=== PATIENT | male | born 1965 | race Caucasian/White ===

== ENCOUNTER 2017-10-21 11:47 | Emergency (ER) | payer MEDICAID, SELFPAY ==
[2017-10-21 11:48] VITALS: BP 142/75; PULSE 78; RESP 16; TEMP 36.8; O2SAT 100; BMI 26.4
--- NOTE | 2017-10-21 12:11 | US_ITS ---
STUDY: SCROTUM ULTRASOUND REASON FOR EXAM: Male, 52 years old. Pain. TECHNIQUE: Ultrasound evaluation of the scrotum was performed with color Doppler and static jackson-scale imaging. COMPARISON: None. FINDINGS: RIGHT TESTICLE INTRATESTICULAR: There is a normal size of the right testicle. The right testicle measures 4.1 x 2.4 x 2.0 cm. There is a homogenous echotexture. There is normal arterial and normal venous vascularity. There is no demonstrated right testicular mass or cyst. EXTRATESTICULAR: The epididymis is normal in size. The epididymis head measures 1.5 cm. There is normal vascularity of the epididymis. There is no demonstrated epididymal cystic structure. There is no demonstrated hydrocele. There is no demonstrated varicocele. There is no demonstrated extratesticular mass or cyst. LEFT TESTICLE INTRATESTICULAR: There is a normal size of the left testicle. The left testicle measures 3.9 x 2.8 x 2.2 cm. There is a homogenous echotexture. There is normal arterial and normal venous vascularity. There is no demonstrated left testicular mass or cyst. EXTRATESTICULAR: The epididymis is normal in size. The epididymis head measures 1.8 cm. There is normal vascularity of the epididymis. There is a well-defined cystic structure within the epididymis, without internal echoes, consistent with a 4 mm epididymal cyst. There is no demonstrated hydrocele. There are prominent extratesticular veins consistent with a varicocele. There is no demonstrated extratesticular mass or cyst. US/Testicular with Arterial Flow IMPRESSION: Normal bilateral testicles. Small left varicocele. Electronically Signed: Jacob Armstrong MD at 13:26 EDT , Service support ,
[2017-10-21] MEDS: Ondansetron 4 MG/2 ML Vial IV (12:26)
[2017-10-21] MEDS: Ketorolac 30 MG/ML Syringe IV (12:27)
[2017-10-21] MEDS: Morphine 4 MG/ML Syringe IV (12:27)
[2017-10-21 12:52] LABS: Bacteria 0 SEEN /hpf (None Seen); Mucous, Urine 0 SEEN /hpf (<or=2+); White Blood Cells 0 SEEN /hpf (0-5)
[2017-10-21 13:08] LABS: Color, Urine Yellow (Yellow); Glucose, Dipstick Normal (Normal); Ketone-Dipstick 5 mg/dl (Negative); Leukocyte Esterase-Dipstick Negative /ul (Negative); Nitrite-Dipstick Negative (Negative); Occult Blood-Urine 50 /ul (Negative); Protein-Dipstick Negative (Negative); Specific Gravity, Urine 1.015 (1.002-1.030); Urine Bilirubin Dipstick Negative (Negative); Urine Clarity Clear (Clear); Urine Urobilinogen Normal (Normal)
[2017-10-21 13:15] LABS: Red Blood Cells-Urine 0-5 SEEN /hpf (0-5); Squamous Epithelial Cells - UA 0-5 SEEN /hpf (0-5)
--- NOTE | 2017-10-21 13:33 | CT_ITS ---
STUDY: CT ABDOMEN AND PELVIS WITH CONTRAST REASON FOR EXAM: Male, 52 years old. Left testicular pain. Kidney stone status post lithotripsy. RADIATION DOSAGE (If Supplied By Facility): CTDIvol = ( 17.68 ) mGy, DLP = ( 1210.83 ) mGycm TECHNIQUE: Transaxial images were obtained from the dome of the diaphragm to the symphysis pubis without oral contrast. 100 ml of Isovue 300 contrast was administered. Sagittal and coronal images were reconstructed. Individualized dose optimization techniques were used for this CT. COMPARISON: 04/08/2015. FINDINGS: The visualized lung bases are unremarkable. The visualized portions of the heart are within normal limits. Normal liver. Normal gallbladder and extrahepatic biliary system. Normal spleen. Normal pancreas. Normal bilateral adrenal glands. No acute abnormalities of the kidneys. There is a 9 mm nonobstructing stone in the mid polar region of the right kidney, larger than on prior exam. No hydronephrosis on either side. No evidence for renal mass. Evaluation of the GI tract is limited by absence of oral contrast. Cannot exclude stomach wall thickening. No dilated loops of bowel or evidence for obstruction. Cannot exclude segmental thickening of the ca of the small or large bowel. Cannot exclude enteritis or colitis. Moderate diffuse fecal retention. Diverticulosis without definite diverticulitis. Appendix within normal limits. There is diffuse atherosclerotic calcification of the abdominal aorta, without a demonstrated aneurysm. Normal inferior vena cava. Normal retroperitoneum. Normal urinary bladder. There is enlargement of the prostate gland. Normal abdominal wall. There are diffuse degenerative changes of the visualized lumbar spine. Bilateral pars defects of L5 with mild anterolisthesis. Stable compression fracture of L1. CT/Abdomen/Pelvis W IV Cont ONLY IMPRESSION: No acute abnormality. Nonobstructing mid left renal stone. Electronically Signed: Jacob Armstrong MD at 15:40 EDT , Service support ,
[2017-10-21 14:15] LABS: Anion Gap 5 (5-15); BUN 17 mg/dL (7-18); BUN/Creat Ratio 18.3 RATIO (10-20); Calcium,Total 8.9 mg/dL (8.5-10.1); Chloride 106 mmol/L (98-107); Creatinine, Serum 0.93 mg/dL (0.70-1.30); EST Glomerular Filtration Rate 90 mL/min (>60); Est Glom Filt Rate - Afr Amer 109 mL/min (>60); Estimated Creatinine Clearance 103.81 ml/min; Glucose 80 mg/dL (74-106); Sodium Level 141 mmol/L (136-145)
[2017-10-21 14:16] LABS: Absolute Lymphocyte Count 2.49 X10^3/ul (0.83-4.51); Absolute Neutrophil Count 4.2 X10^3/uL (2.0-7.7); Basophil# 0.01 X10^3/uL; Basophil% 0.1 % (0-1); Eosinophil# 0.11 X10^3/uL; Eosinophils% 1.5 % (0-5); Hematocrit 42.5 % (40-54); Lymphocyte # 2.49 X10^3/ul (4.0); Lymphocyte % 33.6 % (19-41); Mean Corp Hgb Conc 32.9 g/gl (32-36); Mean Corpuscular Hgb 28.7 pg (27.0-32.0); Mean Corpuscular Volume 87.1 fL (80-94); Mean Platelet Vol. 11.9 fl (6.2-12.0); Monocyte# 0.61 X10^3/uL; Monocyte% 8.2 % (0-10); Neutrophil % 56.6 % (47-70); POSITIVE COUNT NO; POSITIVE DIFFERENTIAL NO; POSITIVE MORPHOLOGY NO; Platelet Count 223 K/mm3 (150-450); RBC Distribution Width SD 41.5 fl (35.1-43.9); Red Blood Count 4.88 M/mm3 (4.6-6.2); White Blood Count 7.4 K/mm3 (4.4-11.0)
[2017-10-21 15:28] VITALS: BP 107/64; PULSE 62; RESP 18; O2SAT 98
--- NOTE | 2017-10-21 16:05 | ED.DCSUM_ITS ---
- ER Visit Summary Date of Service: 10/21/17 Chief Complaint: Testicular pain History of Present Illness: The patient is a 52 M who states that he has been having a progressively worsening intermittent pain in the left testicle for a month. Last night today more painful and he went to his primary care physician who sent him to the emergency department at a concern for orchitis and possibly torsion. He is a diabetic also has a history of gout and hypercholesterolemia. He is in a monogamous relationship with his . He denies any dysuria. Does note some discomfort along the inguinal canal and wonders if he has a hernia. Physical Examination: Afebrile vital signs are stable Gen: Well-nourished well-developed Head: Normocephalic atraumatic Eyes: Perrl EOMI ENT: TMs clear no rhinorrhea moist mucous membranes Neck: Supple no lymphadenopathy no JVD nontender CVS: Regular rate rhythm no murmurs normal S1-S2 Respiratory: No distress clear to auscultation bilaterally chest nontender Abdomen: Soft nontender nondistended normal bowel sounds no masses : The left testicle is tender. Normal cremasteric reflex. The patient has no palpable hernia. No ureteral discharge. Back: Nontender Extremity: Nontender no edema Skin: Normal color no rash Neuro: alert orientated ?3 CN II-XII intact normal strength sensation reflexes gait cerebellar Psych: Normal affect normal mood Test Results: Urinalysis is negative. Scrotal ultrasound demonstrates a left hydrocele. CT of pelvis was negative. Emergency Department Course and Treatment: Patient received morphine and Toradol. Patient's pain is improved. CBC and chemistries were also normal. Start the patient on Cipro as well as scheduled anti-inflammatories and a few [place]. He will follow-up with urology Impression: 1. Left testicular pain This note was generated with [employer] dictation software. It may contain incorrect words, spelling, and punctuation that were not noted in review of the chart prior to signing ED Disposition - Plan for ED Patient: Disposition: Home or Assisted Living Chief Complaint: Male Pain/Injury Instructions: ED Orchitis Prescriptions: Hydrocodone/Acetaminophen [[place] 5-325 Tablet] 1 - 2 ea PO 4X/DAY PRN PRN 4 Days #20 tab PRN Reason: Pain Ciprofloxacin [Cipro] 500 mg PO BID #20 tab Ibuprofen [Motrin] 800 mg PO TID #20 tab Referrals: Glynn Andre MD [STAFF PHYSICIAN] - (call Monday to arrange follow up )
[2017-10-21 16:11] VITALS: BP 126/70; PULSE 54; RESP 18; O2SAT 96
== END 2017-10-21 16:12 | disposition home or self-care (01) ==
PROVIDERS: Emergency Provider Emergency Medicine; Family Provider Family Medicine; PCP Family Medicine
DX: N50.812 Left testicular pain (principal); E11.9 Type 2 diabetes mellitus without complications; M10.9 Gout, unspecified; E78.00 Pure hypercholesterolemia, unspecified; Z79.84 Long term (current) use of oral hypoglycemic drugs; Z79.899 Other long term (current) drug therapy
CPT/HCPCS: 74177; 76870; 80048; 81001; 85025; 93976; 96374; 96375; 99283; J7030; Q9967; A4216; J2405

== ENCOUNTER 2017-10-22 18:29 | Emergency (ER) | payer MEDICAID, SELFPAY ==
[2017-10-22] VITALS (7 sets, daily range): BP systolic 113–171; BP diastolic 70–86; PULSE 62–85; RESP 14–18; O2SAT 98–99; BMI 25.4
--- NOTE | 2017-10-22 19:12 | CT_ITS ---
STUDY: CT BRAIN WITHOUT CONTRAST REASON FOR EXAM: Male, 52 years old. Confusion RADIATION DOSAGE (If Supplied By Facility): CTDIvol = ( 44.99 ) mGy, DLP = ( 846.73 ) mGycm TECHNIQUE: Transaxial CT imaging of the brain was performed without administration of intravenous contrast material. Individualized dose optimization techniques were used for this CT. COMPARISON: None. FINDINGS: There is no acute bleed or infarct. There are normal white matter tracts. The ventricles are normal in configuration. There is no hydrocephalus. The visualized paranasal sinuses are clear. The mastoid air cells are well aerated. There is no skull fracture. CT/Brain/Head without Contrast IMPRESSION: No acute intracranial abnormality. Electronically Signed: Bijan Lindo, at 20:23 EDT Tel , Service support ,
[2017-10-22] MEDS: LORazepam 2 MG/ML Syringe 0.5 MG IV (19:22)
[2017-10-22 19:43] LABS: Absolute Lymphocyte Count 1.96 X10^3/ul (0.83-4.51); Absolute Neutrophil Count 10.4 X10^3/uL (2.0-7.7); Basophil# 0.02 X10^3/uL; Basophil% 0.2 % (0-1); Eosinophil# 0.04 X10^3/uL; Eosinophils% 0.3 % (0-5); Hematocrit 43.5 % (40-54); Hemoglobin 14.6 g/dl (13.0-16.5); Lymphocyte # 1.96 X10^3/ul (4.0); Lymphocyte % 15.1 % (19-41); Mean Corp Hgb Conc 33.6 g/gl (32-36); Mean Corpuscular Volume 86.3 fL (80-94); Mean Platelet Vol. 11.8 fl (6.2-12.0); Monocyte# 0.61 X10^3/uL; Monocyte% 4.7 % (0-10); Neutrophil # 10.38 X10^3/uL (2.7-7.7); Neutrophil % 79.6 % (47-70); Platelet Count 249 K/mm3 (150-450); RBC Distribution Width CV 12.9 % (11.6-14.6); RBC Distribution Width SD 41.1 fl (35.1-43.9); Red Blood Count 5.04 M/mm3 (4.6-6.2)
[2017-10-22 19:44] LABS: POSITIVE COUNT NO; POSITIVE DIFFERENTIAL NO; POSITIVE MORPHOLOGY NO
--- NOTE | 2017-10-22 20:01 | ED.RN ---
lab called with critical lab results. Glucose level 35. Dr. Matos made aware. Verbal order given for amp of d50 and give the patient food at this time
[2017-10-22 20:02] LABS: AST(SGOT) 24 U/L (15-37); Alanine Aminotransfer ALT/SGPT 32 U/L (16-61); Albumin, Serum 4.2 g/dL (3.2-5.0); Alkaline Phosphatase 66 U/L (45-117); Anion Gap 8 (5-15); BUN 24 mg/dL (7-18); BUN/Creat Ratio 21.1 RATIO (10-20); Calcium,Total 9.5 mg/dL (8.5-10.1); Chloride 104 mmol/L (98-107); Creatinine, Serum 1.14 mg/dL (0.70-1.30); EST Glomerular Filtration Rate 71 mL/min (>60); Est Glom Filt Rate - Afr Amer 86 mL/min (>60); Estimated Creatinine Clearance 87.13 ml/min; Globulin 4.1 g/dL (2.2-4.2); Glucose 32 mg/dL (74-106); Potassium 4.2 mmol/L (3.5-5.1); Protein, Total 8.3 g/dL (6.4-8.2); Sodium Level 143 mmol/L (136-145)
[2017-10-22] MEDS: Dextrose 50%-Water 25 GM/50 ML DISP.SYRIN IV ×2 (20:06→20:48)
--- NOTE | 2017-10-22 20:25 | NURSING ---
MADE AWARE: LACTIC 2.5
[2017-10-22 20:26] LABS: Lactic Acid 2.5 mmol/L (0.4-2.0)
[2017-10-22 20:46] LABS: Bedside Glucose 55 mg/dL (70-110)
[2017-10-22] MEDS: 0.9% Normal Saline 1,000 ML 1000 ML IV (20:48)
--- NOTE | 2017-10-22 21:06 | ED.VISSUMM ---
- ER Visit Summary Date of Service: 10/22/17 Chief Complaint: Altered mental status History of Present Illness: The patient is a 52 M who presents with altered mental status that began today. Patient took a dose of Cipro and broke out into a sweat. Family states patient became more confused and agitated after this. Patient was seen here yesterday for left testicular infection. Patient was started on Cipro. Patient had a dose last night and a dose this morning. Patient denies any dysuria or hematuria. Family denies any fevers but states the patient did break it into a sweat. Patient denies any nausea or vomiting. Patient does state that his left testicle pain has improved since yesterday. Physical Examination: Vital signs are stable. Patient is afebrile. Patient is in no acute distress. Patient is awake, alert, and agitated. Cranial nerves II through XII are intact. There are no focal motor or sensory deficits noted. Heart was regular rate and rhythm. Lungs are clear and equal bilaterally. Abdomen is soft and nontender. Oral mucosa is pink and moist. Neck is supple. There is no JVD noted. The remaining physical exam is within normal limits. Test Results: CBC showed a mild leukocytosis of 13.0. BUN was slightly elevated 24. Glucose was low at 32. Lactate was slightly elevated at 2.5. CT scan of the brain was obtained was within normal limits. Emergency Department Course and Treatment: Patient was given half amp of D50 and a food tray here. Repeat blood sugar was 55. Patient was given another half amp of D50. Patient was alert and cooperative on reevaluation. Patient states he no longer wants to take the Cipro because of the reaction he had. Patient was given a prescription for Bactrim to take instead of the Cipro. Patient was given a liter bolus of normal saline. Repeat lactate was obtained and was normal. Disposition: Discharged home Impression: Hypoglycemia This note was generated with General Specific dictation software. It may contain incorrect words, spelling, and punctuation that were not noted in review of the chart prior to signing ED Disposition - Plan for ED Patient: Disposition: Home or Assisted Living Chief Complaint: Alt LOC Diagnosis: Hypoglycemia Instructions: ED Diabetes Hypoglycemia Oral Agent Prescriptions: Smz/Tmp Ds [Bactrim Ds] 1 tab PO BID #20 tab Referrals: Hamilton Chowdhury MD [Primary Care Provider] -
[2017-10-22 21:42] LABS: Bacteria 0 SEEN /hpf (None Seen); Mucous, Urine 0 SEEN /hpf (<or=2+)
[2017-10-22 21:44] LABS: Color, Urine Yellow (Yellow); Glucose, Dipstick 250 mg/dl (Normal); Ketone-Dipstick 5 mg/dl (Negative); Leukocyte Esterase-Dipstick 25 /ul (Negative); Nitrite-Dipstick Negative (Negative); Occult Blood-Urine 50 /ul (Negative); Protein-Dipstick Negative (Negative); Specific Gravity, Urine 1.015 (1.002-1.030); Urine Bilirubin Dipstick Negative (Negative); Urine Clarity Clear (Clear); Urine Urobilinogen Normal (Normal)
[2017-10-22 21:45] LABS: Bedside Glucose 85 mg/dL (70-110)
[2017-10-22 22:11] LABS: Red Blood Cells-Urine 0-5 SEEN /hpf (0-5); Squamous Epithelial Cells - UA 0-5 SEEN /hpf (0-5); White Blood Cells 0-5 SEEN /hpf (0-5)
[2017-10-22 23:06] LABS: Lactic Acid 1.7 mmol/L (0.4-2.0)
[2017-10-22 23:31] LABS: Bedside Glucose 78 mg/dL (70-110)
[2017-10-22 23:32] LABS: Reflex Lactate? Y
== END 2017-10-22 23:45 | disposition home or self-care (01) ==
PROVIDERS: Emergency Provider Emergency Medicine; Family Provider Family Medicine; PCP Family Medicine
DX: E16.2 Hypoglycemia, unspecified (principal); N45.2 Orchitis; Z79.2 Long term (current) use of antibiotics; Z79.84 Long term (current) use of oral hypoglycemic drugs; Z79.891 Long term (current) use of opiate analgesic; Z79.899 Other long term (current) drug therapy
CPT/HCPCS: 70450; 80053; 81001; 82962; 83605; 85025; 87040; 87086; 96361; 96374; 96375; 96376; 99284; J7030; A4216

== ENCOUNTER 2018-04-30 02:16 | Inpatient (IN) | payer MEDICAID, SELFPAY ==
[2018-04-30] VITALS (15 sets, daily range): BP systolic 127–152; BP diastolic 70–84; PULSE 74–105; RESP 12–18; TEMP 36.6–37.7; O2SAT 91–98; BMI 32.8; BMI 27.7
--- NOTE | 2018-04-30 02:21 | ED.RN ---
RN CALLED FOR EKG, PULLED OLD EKGS FOR
--- NOTE | 2018-04-30 02:37 | EKG12_ITS ---
Test Reason : SYNCOPE Blood Pressure : / mmHG Vent. Rate : 105 BPM Atrial Rate : 105 BPM P-R Int : 144 ms QRS Dur : 092 ms QT Int : 366 ms P-R-T Axes : 000 048 035 degrees QTc Int : 483 ms Sinus tachycardia with Premature atrial complexes with Aberrant conduction Otherwise normal ECG Confirmed by DARIA SCHMIDT, AILYN ([id number]), writer editor ISABELLA LIU ([id number]) on 05/01/2018 9:36:49 AM Referred By: LORENA Confirmed By:AILYN HUFF MD
--- NOTE | 2018-04-30 02:37 | CT_ITS ---
HISTORY: PASSED OUT AND FELL HITTING HEADHX:HTN,DIABETES TECHNIQUE: Multiple axial images were obtained of the brain without intravenous contrast. A radiation dose optimization technique was used for this scan. IV Contrast dosage and agent: None. COMPARISON: 10/22/2017 FINDINGS: Normal ventricles. Mild cerebral cortical atrophy. Sifuentes-white matter differentiation appears normal. No intracranial mass, hemorrhage, or acute intracranial disease. Posterior fossa structures are on remarkable. No suspicious extra-axial fluid collection. Extensive opacification of the ethmoid air cells bilaterally. Sphenoid sinus mild mucosal thickening. The mastoids and middle ear cavities appear clear. No calvarial fracture seen. CT/Brain/Head without Contrast IMPRESSION: 1. No acute intracranial abnormality. 2. Bilateral ethmoid sinusitis and mild sphenoid sinusitis. Individualized dose optimization techniques were used for this CT. at 0402 Reported and signed by: Ben Coelho MD Electronically Signed: Ben Coelho, at 4:00 EST Tel , Service support ,
--- NOTE | 2018-04-30 02:38 | CT_ITS ---
HISTORY: PASSED OUT AND FELL HITTING HEADHX:HTN,DIABETES TECHNIQUE: Helically acquired images were obtained of the facial bones. A radiation dose optimization technique was used for this scan. IV Contrast dosage and agent: None. COMPARISON: None FINDINGS: There is a mildly displaced fracture of the upper nasal septum which is deviated to the right. The lower nasal septum shows a bony spur which also deviates to the right. The nasal bones, orbits, and remaining visualized bones appear intact. No orbital blowout fracture. Extensive opacification of the ethmoid air cells bilaterally. Mild mucosal thickening of the sphenoid sinuses bilaterally and the left frontal sinus. Mucosal thickening of the upper maxillary sinuses with occlusion of the ostiomeatal units bilaterally. The globes appear intact. No intraorbital disease seen. The mastoids and middle ear cavities appear clear. CT/Sinus/Facial Bone IMPRESSION: 1. Recent, mildly displaced fracture of the upper nasal septum, deviated to the right. 2. The overlying nasal bones appear intact. 3. Paranasal sinus opacification, as above. Individualized dose optimization techniques were used for this CT. at 0438 Reported and signed by: eBn Coelho MD Electronically Signed: Ben Coelho, at 4:37 EST Tel , Service support ,
[2018-04-30] MEDS: 0.9% Normal Saline 1,000 ML 1000 ML IV (02:40)
[2018-04-30 03:00] LABS: ALB/GLOB Ratio 0.8 RATIO (0.9-2.4); AST(SGOT) 14 U/L (15-37); Alanine Aminotransfer ALT/SGPT 27 U/L (16-61); Albumin, Serum 3.6 g/dL (3.2-5.0); Alkaline Phosphatase 68 U/L (45-117); Anion Gap 14 (5-15); BUN 11 mg/dL (7-18); BUN/Creat Ratio 8.9 RATIO (10-20); Calcium,Total 9.1 mg/dL (8.5-10.1); Chloride 99 mmol/L (98-107); Creatinine, Serum 1.23 mg/dL (0.70-1.30); EST Glomerular Filtration Rate 65 mL/min (>60); Est Glom Filt Rate - Afr Amer 79 mL/min (>60); Globulin 4.8 g/dL (2.2-4.2); Glucose 100 mg/dL (74-106); Lipase 223 U/L (73-393); Potassium 3.4 mmol/L (3.5-5.1); Protein, Total 8.4 g/dL (6.4-8.2); Sodium Level 137 mmol/L (136-145)
[2018-04-30 03:01] LABS: Absolute Lymphocyte Count 3.26 X10^3/ul (0.83-4.51); Absolute Neutrophil Count 10.5 X10^3/uL (2.0-7.7); Basophil# 0.02 X10^3/uL; Basophil% 0.1 % (0-1); Eosinophil# 0.08 X10^3/uL; Eosinophils% 0.5 % (0-5); Hematocrit 40.4 % (40-54); Hemoglobin 13.6 g/dl (13.0-16.5); Lymphocyte # 3.26 X10^3/ul (4.0); Lymphocyte % 20.2 % (19-41); Mean Corp Hgb Conc 33.7 g/gl (32-36); Mean Corpuscular Hgb 29.4 pg (27.0-32.0); Mean Corpuscular Volume 87.3 fL (80-94); Mean Platelet Vol. 10.9 fl (6.2-12.0); Monocyte# 2.22 X10^3/uL; Monocyte% 13.8 % (0-10); Neutrophil % 65.2 % (47-70); Platelet Count 314 K/mm3 (150-450); RBC Distribution Width SD 41.7 fl (35.1-43.9); Red Blood Count 4.63 M/mm3 (4.6-6.2); White Blood Count 16.1 K/mm3 (4.4-11.0)
[2018-04-30 03:02] LABS: Differential Indicated SCAN CRITERIA MET; POSITIVE COUNT NO; POSITIVE DIFFERENTIAL YES; POSITIVE MORPHOLOGY NO
--- NOTE | 2018-04-30 03:25 | RAD_ITS ---
HISTORY: PT PASSED OUT AT HOME THIS AM. DISTAL POSTERIOR SKIN TEAR TO LEFT FOREARM. COMPARISON: None FINDINGS: XR left forearm 2 views Intravenous cannula at the antecubital left elbow. No fracture, dislocation, or bony abnormality. IMPRESSION: Negative for fracture or acute osseous abnormality. at 0412 Reported and signed by: Ben Coelho MD Electronically Signed: Ben Coelho, at 4:16 EST Tel , Service support , RAD/Forearm 2 Views
--- NOTE | 2018-04-30 03:25 | RAD_ITS ---
HISTORY: SYNCOPE. PT PASSED OUT AT HOME THIS AM. HX HTN EXAM: XR Chest 1 View: COMPARISON: None FINDINGS: EKG leads in place. Limited inspiration. Normal heart size. The mediastinum is not widened. No vascular congestion, pleural effusion, or acute pulmonary infiltration. No pneumothorax. The bony thorax appears intact. RAD/Chest 1 View (Portable) IMPRESSION: Limited inspiration. No acute chest disease. at 0423 Reported and signed by: Ben Coelho MD Electronically Signed: Ben Coelho, at 4:22 EST Tel , Service support ,
--- NOTE | 2018-04-30 03:37 | NURSING ---
LACTIC ACID OF 4.[address] CARRILLO
[2018-04-30] MEDS: 0.9% Normal Saline 1,000 ML 999 ML IV ×2 (03:40→05:00)
[2018-04-30 03:41] LABS: Lactic Acid 4.7 mmol/L (0.4-2.0)
--- NOTE | 2018-04-30 03:52 | CT_ITS ---
HISTORY: INTERMITTENT LLQ PAIN SINCE SEPTEMBER. PASSED OUT AND FELL THIS AM. HX:DIABETES, HTN, KIDNEY STONES WITH PRIOR LITHOTRIPSY TECHNIQUE: Helically acquired images were obtained of the abdomen and pelvis following IV contrast. A radiation dose optimization technique was used for this scan. IV Contrast dosage and agent: 100 cc Isovue-300 contrast Oral contrast: None. COMPARISON: 10/21/2017 FINDINGS: Lower thorax: No pleural effusion. The liver, pancreas, gallbladder, and biliary system show no CT abnormality. Normal splenic size with small calcified splenic granuloma, unchanged. Both kidneys are normal in position. Stable 8 x 4 mm calyceal stone, mid pole of the right kidney. Small parapelvic cyst of the right renal lower pole. No hydronephrosis or hydroureter. The adrenal glands are not enlarged. Abdominal aorta is atherosclerotic and is normal in caliber. No ascites or retroperitoneal lymphadenopathy. GI tract:: No obstruction. Negative appendix. Pelvis: The urinary bladder is poorly distended. Pelvis shows no free fluid or lymphadenopathy. Bones: No acute osseous abnormality. Chronic compression deformity of the L1 vertebra. L5 bilateral spondylolysis. CT/Abdomen/Pelvis W IV Cont ONLY IMPRESSION: 1. No acute disease or significant change. 2. Right renal subcentimeter nonobstructing stone. No hydronephrosis. 3. Atherosclerotic calcifications and additional chronic changes, as above Individualized dose optimization techniques were used for this CT. at 7215 Reported and signed by: Ben Coelho MD Electronically Signed: Ben Coelho, at 5:46 EST Tel , Service support ,
[2018-04-30] MEDS: Ondansetron 4 MG/2 ML Vial IV (04:07)
[2018-04-30] MEDS: Morphine 4 MG/ML Syringe IV (04:07)
[2018-04-30 04:22] LABS: Mucous, Urine 0 SEEN /hpf (<or=2+); Squamous Epithelial Cells - UA 0 SEEN /hpf (0-5)
[2018-04-30 04:27] LABS: Color, Urine Yellow (Yellow); Glucose, Dipstick Normal (Normal); Ketone-Dipstick Negative (Negative); Leukocyte Esterase-Dipstick 500 /ul (Negative); Nitrite-Dipstick Positive (Negative); Occult Blood-Urine 150 /ul (Negative); Protein-Dipstick 100 mg/dl (Negative); Urine Bilirubin Dipstick Negative (Negative); Urine Clarity Sl. Cloudy (Clear); Urine Urobilinogen 1 mg/dl (Normal); Urine pH 6.5 (5.0 - 8.0)
[2018-04-30 04:57] LABS: Bacteria 1+ /hpf (None Seen); Red Blood Cells-Urine 5-10 SEEN /hpf (0-5); White Blood Cells >100 SEEN /hpf (0-5)
--- NOTE | 2018-04-30 06:07 | PCM.HP.STD ---
Problem List (1) Septic shock Status: Acute (2) Cystitis Status: Acute History of Present Illness Date of Admission: 04/30/18 Chief Complaint: syncope The patient is a 52 year old M who was significant history of hypertension; diabetes; gout who presented with syncope. Few hours before his admission he was urinating and felt lightheaded after urinating; and while he was walking back and he passed out and fell. Because of the impact of the fall he came back to himself. His called the squad and was brought to emergency department. Associated with his symptoms is chills, nausea, anorexia, urinary hesitancy, dysuria, weak urinary stream and increased urinary frequency. He reports pain on his nose, pain on his right rib, and pain on his right dorsal forearm from falling. He reports a temperature of 102 at home. Further he reports malaise. Also he reports diarrhea for 5 days. Facial and sinus CT showed mild displaced fracture of the upper nasal septum deviated to the right. Brain CT did not show any acute pathology. Chest x-ray and forearm x-ray was unremarkable. CT of his abdomen was unremarkable. Patient reported that since April 2017 he has had sore scrotum; right lower quadrant pain and suprapubic pain. He was eventually referred to a urologist where he was treated with antibiotics for UTI. He completed a 10 days course of antibiotics in March 2018. Past Medical History Medical History: Medical History (Last Updated 04/30/18 @ 07:40 by Mayo Sinclair MD) Diabetes E11.9 Gout M10.9 Hyperlipidemia E78.5 Hypertension I10 Allergies ciprofloxacin Allergy (Verified 04/30/18 02:27) Other Penicillins Allergy (Verified 04/30/18 02:18) Hives Home Medications: Ambulatory Orders Medication Instructions Recorded Allopurinol [Zyloprim] 200 mg PO DAILYCM 03/28/15 Atorvastatin Calcium [Lipitor] 40 mg PO QHS 03/28/15 Lisinopril [Zestril] 40 mg PO DAILY 03/28/15 Metformin HCl [Glucophage] 2,000 mg PO DAILY 03/28/15 Glimepiride [Amaryl] 4 mg PO DAILY 10/21/17 Surgical History: arthroscopy, knee - Right knee, - Lives: With Family Smoking Status: Never smoker Alcohol: None - *Family History Paternal Family History: Family History (Last Updated 04/30/18 @ 07:42 by Mayo Sinclair MD) Mother Cardiac arrest Heart problem Hypertension Father Hypertension Review of Systems Constitutional: Reports: Chills, Fever, Malaise, Weakness, Fatigue. Denies: Weight Change HEENT: Denies: Head Aches, Sinus Congestion, Sinus Drainage Cardiovascular: Reports: Syncope. Denies: Chest Pain, Palpitations Respiratory: Denies: Cough, Shortness of breath at rest, Sputum production Gastrointestinal: Reports: Abdominal Pain, Nausea. Denies: Vomiting Genitourinary: Reports: Frequency - Increased, Hesitancy. Denies: Dysuria Musculoskeletal: Denies: Joint Pain, Joint Tenderness Skin: Denies: Rash, Wounds Neurological: Denies: Numbness, Tingling, Focal weakness Psychiatric: Denies: Anxiety, Depression, Homicidal Ideations, Suicidal Ideations Hematologic/ Lymphatic: Denies: Easy Bruising, Easy Bleeding VTE Information - Inpt Only VTE Present on Admission: No VTE Mechan Device Prophylaxis: None VTE Pharm Prophylaxis ordered?: Yes Patient Problems: Active and Suspected Problems (Last Updated 04/30/18 @ 07:40 by Mayo Sinclair MD) Septic shock (Acute) Cystitis (Acute) - Physical Exam General: Alert, Oriented x3, Cooperative HEENT: Atraumatic, PERRLA, EOMI, Normocephalic Neck: Supple, No JVD, Negative Carotid Bruits Lungs: Clear to auscultation, Normal air movement Cardiovascular: No murmurs, Tachycardic Abdomen: Bowel Sounds Present, Soft, Non Tender, - - Rectal exam showed external hemorrhoids; no masses; prostate was nontender. Patient with sore scrotum and suprapubic tenderness. Extremities: No edema, Capillary Refill Less than 3 Seconds Skin: No rashes, No breakdown Musculoskeletal: No Tenderness to Palpation of Joints or Extremities Neurological: Cranial nerves II-XII grossly intact Psych/Mental Status: Normal Affect, Appropriate Vital Signs Temp Pulse Resp BP Pulse Ox 98.0 F 104 H 12 127/70 H 94 04/30/18 05:00 04/30/18 05:00 04/30/18 04:23 04/30/18 05:00 04/30/18 05:00 Oxygen Delivery Method Room Air Weight: 97.8 kg Body Mass Index (BMI) 32.8 Laboratory Tests Past 24 Hrs 04/30/18 04/30/18 04/30/18 02:25 02:25 02:25 WBC 16.1 H RBC 4.63 Hgb 13.6 Hct 40.4 MCV 87.3 MCH 29.4 MCHC 33.7 RDW 13.0 RDW Differential 41.7 Plt Count 314 MPV 10.9 Immature Gran % (Auto) 0.200 Neut % (Auto) 65.2 Lymph % (Auto) 20.2 [place] % (Auto) 13.8 H Eos % (Auto) 0.5 Baso % (Auto) 0.1 Absolute Neuts (auto) 10.5 H Absolute Lymphs (auto) 3.26 Total Counted Not Reportable Differential Comment Diff Path Review May foll Sodium 137 Potassium 3.4 L Chloride 99 Carbon Dioxide 24.0 Anion Gap 14 BUN 11 Creatinine 1.23 Estim Creat Clear Calc 67.20 Est GFR (MDRD) Af Amer 79 Est GFR (MDRD) Non-Af 65 BUN/Creatinine Ratio 8.9 L Glucose 100 Lactic Acid 4.7 H* Calcium 9.1 Total Bilirubin 0.80 AST 14 L ALT 27 Alkaline Phosphatase 68 Troponin I < 0.015 Total Protein 8.4 H Albumin 3.6 Globulin 4.8 H Albumin/Globulin Ratio 0.8 L Lipase 223 Urine Color Urine Clarity Urine pH Ur Specific [place] Urine Protein Urine Glucose (UA) Urine Ketones Urine Occult Blood Urine Nitrite Urine Bilirubin Urine Urobilinogen Ur Leukocyte Esterase Urine RBC Urine WBC Ur Squamous Epith Cells Urine Bacteria Urine Mucus 04/30/18 04:15 WBC RBC Hgb Hct MCV MCH MCHC RDW RDW Differential Plt Count MPV Immature Gran % (Auto) Neut % (Auto) Lymph % (Auto) [place] % (Auto) Eos % (Auto) Baso % (Auto) Absolute Neuts (auto) Absolute Lymphs (auto) Total Counted Differential Comment Diff Path Review Sodium Potassium Chloride Carbon Dioxide Anion Gap BUN Creatinine Estim Creat Clear Calc Est GFR (MDRD) Af Amer Est GFR (MDRD) Non-Af BUN/Creatinine Ratio Glucose Lactic Acid Calcium Total Bilirubin AST ALT Alkaline Phosphatase Troponin I Total Protein Albumin Globulin Albumin/Globulin Ratio Lipase Urine Color Yellow Urine Clarity Sl. Cloudy Urine pH 6.5 Ur Specific [place] 1.010 Urine Protein 100 H Urine Glucose (UA) Normal Urine Ketones Negative Urine Occult Blood 150 H Urine Nitrite Positive H Urine Bilirubin Negative Urine Urobilinogen 1 H Ur Leukocyte Esterase 500 H Urine RBC 5-10 SEEN Urine WBC >100 SEEN Ur Squamous Epith Cells 0 SEEN Urine Bacteria 1+ Urine Mucus 0 SEEN Assessment/Plan All Active Problems (Last Updated 04/30/18 @ 07:40 by Mayo Sinclair MD) Septic shock (Acute) Cystitis (Acute) The patient is a 52 year old M who was significant history of hypertension; diabetes; gout; hyperlipidemia who presented with syncope; malaise; fever of 102 F at home; chills; nausea; anorexia; urinary hesitancy; dysuria; weak urinary stream; and increased urinary frequency; and was found to have tachycardia; low-grade fever; leukocytosis; and lactic acidosis of 4.7 consistent with septic shock secondary to acute cystitis. Septic shock secondary to acute cystitis. Patient received normal saline IV bolus per septic protocol while at emergency department. Because of mild hypokalemia we will continue patient on normal saline with 40meq of potassium going at 100 MLS per hour for 1 L. Patient was started on cefepime at emergency department before the results of urinalysis came in. We will continue patient on ceftriaxone. Of note patient reports history of severe hypoglycemia with ciprofloxacin. Trend lactic acid Blood cultures are pending. Urine cultures were ordered. Hold metformin because of lactic acidosis. Discussed with patient to follow-up with urology after discharge. CT abdomen/Pelvis was unremarkable Syncope Likely due to septic shock from cystitis. Treatment of septic shock as above. IV morphine and oxycodone for pain secondary to fall. Nasal septal fracture As needed IV morphine and oxycodone. Patient can follow-up with ENT after discharge. Left skin abrasion Bactroban with Adaptic dressing. HTN On admission his blood pressure was not within goal. Lisinopril continued. Trend blood pressures and adjust blood pressure medication as necessary. Diabetes On admission his blood glucose was under control. His blood glucose was only 100 on BMP. We will continue Amaryl. We will hold metformin because of lactic acidosis. Fingersticks q. before meals at bedtime. Gout: Allopurinol continued. Hyperlipidemia: Lipitor continued DVT prophylaxis Subcutaneous Lovenox. [facility]
--- NOTE | 2018-04-30 06:33 | ED.DCSUM_ITS ---
- ER Visit Summary Date of Service: 04/30/18 Chief Complaint: Syncope History of Present Illness: The patient is a 52 M who presents after syncopal episode. He has been dealing with a chronic UTI for about 6 months. He has really not felt well for this entire time. He has seen urology. However recently he also had fever with a temperature of 102.7. He reports ongoing nausea but no vomiting. He does complain of suprapubic abdominal pain for months. He complains of diarrhea. He also has had some recent cough congestion sore throat and rhinorrhea. He got up to ambulate to the bathroom tonight and became lightheaded and dizzy and then had a syncopal episode. He believes that he woke up almost immediately after hitting the floor which was confirmed by his visitor as he was awake after she heard a thud. He did hit his face and had some epistaxis and also complains of pain in his left forearm. Physical Examination: Heart rate 105 vitals otherwise unremarkable Patient has dried blood bilateral nares no nasal septal hematoma Heart is regular rhythm tachycardia Lungs are clear with equal breath sounds no rales rhonchi wheezes Abdomen soft no reproducible tenderness nondistended Genitourinary exam is normal no scrotal erythema tenderness crepitus He has active full range of motion x4 extremities but he does have pain over the distal left forearm proximal to the wrist this is worsened with supination and pronation there is no overlying skin tear he has an easily palpable radial pulse Alert and oriented answers all questions appropriately no focal or lateralizing neurological deficits Normal affect Test Results: EKG shows sinus rhythm at a rate of 105 with a single PVC. Labs are notable for white blood cell count 16.1 normal hepatic function and lipase. Troponin is negative. Lactic acid is elevated at 4.7. Urinalysis shows 500 sary kocyte esterase, positive nitrates, greater than 100 WBCs 1+ bacteria. Chest x- ray shows no acute disease. Forearm x-ray shows no fracture. CT of the head shows no cranial abnormalities patient does appear to have sphenoid and ethmoid sinusitis. CT of the facial bones shows a mildly displaced nasal septal fracture. CT of the abdomen and pelvis shows no acute disease. Emergency Department Course and Treatment: Workup as above. Patient was treated with IV fluids. He was given broad-spectrum empiric antibiotics. He reports a penicillin allergy so was given cefepime while awaiting remainder of the results. He does have findings consistent with UTI. Given tachycardia, elevated white blood cell count, lactic acidosis with a lactic acid of greater than 4 he needs a septic shock criteria. He received 30 cc/kg of IV fluids. On reevaluation his vital signs are normal. His tachycardia has resolved. Pulse oximetry and blood pressure have remained stable. He was discussed with the hospitalist and will be admitted. Treatment Plan: [] Disposition: Admit Impression: Septic shock UTI Nasal septal fracture Syncope Skin tear left forearm This note was generated with [employer] dictation software. It may contain incorrect words, spelling, and punctuation that were not noted in review of the chart prior to signing ED Disposition - Plan for ED Patient: Chief Complaint: Syncope Referrals: Hamilton Chowdhury MD [Primary Care Provider] -
[2018-04-30 06:41] LABS: Reflex Lactate? Y
[2018-04-30 07:31] LABS: Lactic Acid 1.5 mmol/L (0.4-2.0)
--- NOTE | 2018-04-30 09:23 | PCM.PN.BLA ---
Progress Note This is a 52 years old male patient presented to the ED because of syncope, found to have septic shock secondary to acute cystitis. This morning, he feels better. He has been afebrile, blood pressure stable. Lactic acid is back to normal after IV fluids and antibiotics. CT scan abdomen and pelvis revealed nonobstructing small right kidney stone, no hydronephrosis. CT scan brain showed no acute findings, revealed sinusitis. Chest x-ray showed no acute findings. X-ray of the facial bones and sinuses revealed mildly displaced fracture of the upper nasal septum with intact overlying the nasal bones. Assessment and plan: #1 septic shock secondary to acute cystitis: On IV Rocephin, lactic acid is back to normal. #2 syncope: Attributed to vasovagal syncope due to septic shock. #3 mild ethmoid and sphenoid sinusitis: On IV Rocephin which can cover microorganism for sinusitis. #4 mildly displaced fracture of the elbow nasal symptom: Conservative treatment, may need referral to ENT as outpatient.
[2018-04-30] MEDS: Potassium Chloride 40 MEQ in 0.9% Normal Saline 1,000 ML 100 MEQ IV (10:21)
[2018-04-30 11:53] LABS: Pathologist Review Reviewed
[2018-04-30] MEDS: Enoxaparin 40 MG/0.4 ML Syringe SC (11:56)
--- NOTE | 2018-04-30 11:56 | CASEMGMT ---
LARISSA LANIER assessment: Face to Face with patient for initial transition planning/care coordination assessment. LARISSA LANIER introduced self and role at [facility], pt voices understanding and consents to assessment at this time. Pt is sitting up in bed in no distress at this time. Pt is A/Ox4 at this time and answers all questions appropriately at this time. Care providers, pharmacy, and demographics verified at this time. PCP: [place] Specialists: Pt states no current specialists. Preferred [facility]acy: [facility] Insurance: [employer] Prescription Benefit: [employer] Living Will/HPOA: Pt states does not have LW/HPOA but would like info at this time. AD info provided to pt at this time. Joanne SW aware and voices understanding. LNOK: Mini Villafana, Living Arrangements: Pt states lives with and boys in house and states no concerns at home at this time. Pt states independent with ADL's at home. Transportation: Pt states drives self and states no transportation concerns at this time. DME/HHC: Pt states has a cane and walker but does no currently use. Pt states no need for any further DME at this time. Pt states has had HHC in the past but has never been to SNF in the past. Pt states no concerns with going home at time of discharge. 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 Pt states does not smoke or drink ETOH. Pt states no further concerns/needs at this time. CM to follow for any further discharge planning/needs. Advised pt to ask for CM if any further questions/concerns/needs arise, voices understanding. Plan: [place] LARISSA LANIER
[2018-04-30] MEDS: Fluticasone 0.05% 1 SPRAY NASAL.SRY NASAL ×2 (11:57→21:12)
[2018-04-30 13:20] LABS: Bedside Glucose 66 mg/dL (70-110)
[2018-04-30] MEDS: Acetaminophen 325 MG Tablet 650 MG PO (14:25)
[2018-04-30 17:16] LABS: Bedside Glucose 134 mg/dL (70-110)
[2018-04-30] MEDS: Atorvastatin Calcium 40 MG Tablet PO (21:12)
[2018-04-30] MEDS: Glimepiride 4 MG Tablet PO (21:12)
[2018-04-30] MEDS: Tamsulosin HCl 0.4 MG Capsule PO (21:12)
[2018-04-30] MEDS: Lisinopril 40 MG Tablet PO (21:12)
[2018-04-30] MEDS: Allopurinol 100 MG Tablet 200 MG PO (21:12)
[2018-04-30] MEDS: 0.9% NaCl Peripheral Flush Adult/Peds IV (21:13)
[2018-04-30 21:21] LABS: Bedside Glucose 104 mg/dL (70-110)
[2018-05-01] VITALS (14 sets, daily range): BP systolic 132–154; BP diastolic 76–85; PULSE 63–88; RESP 16–18; TEMP 36.6–37; O2SAT 94–97
[2018-05-01] MEDS: Acetaminophen 325 MG Tablet 650 MG PO ×2 (02:15→19:27)
[2018-05-01 06:25] LABS: Absolute Lymphocyte Count 2.16 X10^3/ul (0.83-4.51); Absolute Neutrophil Count 4.6 X10^3/uL (2.0-7.7); Basophil# 0.03 X10^3/uL; Basophil% 0.4 % (0-1); Eosinophil# 0.12 X10^3/uL; Eosinophils% 1.6 % (0-5); Hematocrit 36.1 % (40-54); Hemoglobin 11.9 g/dl (13.0-16.5); Lymphocyte # 2.16 X10^3/ul (4.0); Lymphocyte % 27.9 % (19-41); Mean Corpuscular Hgb 29.2 pg (27.0-32.0); Mean Corpuscular Volume 88.5 fL (80-94); Monocyte# 0.83 X10^3/uL; Monocyte% 10.7 % (0-10); Neutrophil # 4.58 X10^3/uL (2.7-7.7); Neutrophil % 59.1 % (47-70); Platelet Count 252 K/mm3 (150-450); RBC Distribution Width CV 12.8 % (11.6-14.6); RBC Distribution Width SD 40.9 fl (35.1-43.9); Red Blood Count 4.08 M/mm3 (4.6-6.2); White Blood Count 7.7 K/mm3 (4.4-11.0)
[2018-05-01 06:27] LABS: POSITIVE COUNT NO; POSITIVE DIFFERENTIAL NO; POSITIVE MORPHOLOGY NO
[2018-05-01 06:33] LABS: Anion Gap 8 (5-15); BUN 11 mg/dL (7-18); BUN/Creat Ratio 13.5 RATIO (10-20); Chloride 105 mmol/L (98-107); Creatinine, Serum 0.81 mg/dL (0.70-1.30); EST Glomerular Filtration Rate 105 mL/min (>60); Est Glom Filt Rate - Afr Amer 128 mL/min (>60); Estimated Creatinine Clearance 119.19 ml/min; Glucose 71 mg/dL (74-106); Potassium 3.6 mmol/L (3.5-5.1); Sodium Level 140 mmol/L (136-145)
[2018-05-01 06:47] LABS: Magnesium 1.8 mg/dL (1.6-2.6)
[2018-05-01 07:25] LABS: Bedside Glucose 73 mg/dL (70-110)
--- NOTE | 2018-05-01 07:50 | PCM.PROGNOTE ---
Patient Problems: Active and Suspected Problems (Last Updated 04/30/18 @ 07:40 by Mayo Sinclair MD) Septic shock (Acute) Cystitis (Acute) Subjective: Chief complaint: Follow-up after admission for septic shock secondary to acute cystitis, syncope, mild ethmoid and sphenoid sinusitis as well as mildly displaced fracture of the nasal septum. Patient seen and examined. No acute events overnight. He denied any significant complaints. After started on Flomax, he states that he has been urinating easier, stronger stream. No more dysuria. Denies fever chills or night. His vital signs are stable. - Physical Exam General: Alert, Oriented x3, Cooperative, No apparent distress HEENT: Atraumatic, PERRLA, EOMI, Normocephalic Oral: Moist Mucosa, No Gingival or Mucosal Lesions/ Ulcerations Neck: Supple, No JVD, Negative Carotid Bruits, Trachea Midline, Thyroid Normal Size and Texture Lungs: Clear to auscultation, Normal air movement, No rhonchi, No wheeze, No rales Cardiovascular: Regular rate, Regular Rhythm, Normal S1, Normal S2, No murmurs Abdomen: Bowel Sounds Present, Soft, Non Tender, Non-Distended, No Hepato-splenomegaly Extremities: No clubbing, No cyanosis, No edema Skin: No rashes, No breakdown Lymphatic: No Cervical, Supraclavicular, or Inguinal Adenopathy Neurological: Cranial nerves II-XII grossly intact, Motor Exam 5/5 strength throughout Psych/Mental Status: Normal Affect, Appropriate, Alert and oriented to time, place, person, mood and affect Vital Signs Temp Pulse Resp BP Pulse Ox 98.2 F 73 18 145/78 H 96 05/01/18 05:45 05/01/18 06:15 05/01/18 05:45 05/01/18 05:45 05/01/18 05:45 Oxygen Delivery Method Room Air Weight: 210 lb Body Mass Index (BMI) 27.7 Intake and Output for Last 24 Hours 04/29/18 04/30/18 05/01/18 23:59 23:59 23:59 Intake Total 2543 / 2543 Balance 2543 / 2543 Laboratory Tests Past 24 Hrs 04/30/18 05/01/18 05/01/18 02:25 05:50 05:50 WBC 7.7 RBC 4.08 L Hgb 11.9 L Hct 36.1 L MCV 88.5 MCH 29.2 MCHC 33.0 RDW 12.8 RDW Differential 40.9 Plt Count 252 MPV 11.0 Immature Gran % (Auto) 0.300 Neut % (Auto) 59.1 Lymph % (Auto) 27.9 [place] % (Auto) 10.7 H Eos % (Auto) 1.6 Baso % (Auto) 0.4 Absolute Neuts (auto) 4.6 Absolute Lymphs (auto) 2.16 Total Counted Not Reportable Diff Path Review Reviewed Sodium 140 Potassium 3.6 Chloride 105 Carbon Dioxide 27.0 Anion Gap 8 BUN 11 Creatinine 0.81 Estim Creat Clear Calc 119.19 Est GFR (MDRD) Af Amer 128 Est GFR (MDRD) Non-Af 105 BUN/Creatinine Ratio 13.5 Glucose 71 L Calcium 9.0 Magnesium 05/01/18 05:50 WBC RBC Hgb Hct MCV MCH MCHC RDW RDW Differential Plt Count MPV Immature Gran % (Auto) Neut % (Auto) Lymph % (Auto) [place] % (Auto) Eos % (Auto) Baso % (Auto) Absolute Neuts (auto) Absolute Lymphs (auto) Total Counted Diff Path Review Sodium Potassium Chloride Carbon Dioxide Anion Gap BUN Creatinine Estim Creat Clear Calc Est GFR (MDRD) Af Amer Est GFR (MDRD) Non-Af BUN/Creatinine Ratio Glucose Calcium Magnesium 1.8 POC Glucose 05/01/18 04/30/18 04/30/18 07:23 21:07 17:03 POC Glucose 73 104 134 H 04/30/18 13:17 POC Glucose 66 L Medical Necessity - Tobacco Use Smoking Status: Never smoker Assessment/Plan All Active Problems (Last Updated 04/30/18 @ 07:40 by Mayo Sinclair MD) Septic shock (Acute) Cystitis (Acute) This is a 52 years old male patient presented to the emergency room because of syncope, found to have septic shock secondary to acute cystitis and also found to have mild ethmoid and sphenoid sinusitis and mildly displaced fracture of the upper nasal septum. #1 septic shock/acute cystitis: He is on IV Rocephin. His vital signs remained stable overnight, remained afebrile. Both lactic acid and WBC are back to normal. Patient was started on Flomax yesterday, reported improvement urinating, stronger stream. Urine and blood cultures pending. CT scan abdomen and pelvis reviewed, no evidence of obstructive uropathy. Plan to continue same treatment, follow-up blood and urine cultures. #2 syncope: Attributed to septic shock, likely vasovagal. His vitals has been stable overnight, denies dizziness or lightheadedness. He has been ambulating without any symptoms. CT scan brain showed no acute findings. #3 mild ethmoid and sphenoid sinusitis: Incidental finding on CT scan brain, also showing on the x-ray of the facial bones and sinuses. Patient is already on IV Rocephin which can cover for sinusitis. Plan to continue same treatment. #4 mildly acute displaced fracture of the upper nasal septum: Secondary to the fall due to syncope. Plan for conservative treatment, recommend follow-up with ENT as outpatient. #5 type 2 diabetes mellitus: Blood sugar has been stable, continue glimepiride, insulin sliding scale, keep holding metformin. #6 hypertension: Blood pressure stable, continue lisinopril. #7 hyperlipidemia: Continue statins. #8 DVT prophylaxis: Subcu Lovenox. This note was generated with [employer] dictation software. It may contain incorrect words, spelling, and punctuation that were not noted in checking the note before signing. Code Visit Inpatient E&M: 12973 Subs Hosp L2
[2018-05-01] MEDS: Fluticasone 0.05% 1 SPRAY NASAL.SRY NASAL ×2 (10:53→22:04)
--- NOTE | 2018-05-01 11:20 | CASEMGMT ---
LARISSA LANIER gave patient advance directives to review. SW checked in with patient to see if he had questions about documents or if he wanted to complete them. He said he has not reviewed them yet. SW let him know to ask for SW if he has questions. Meghan WU MSW
[2018-05-01 12:00] LABS: Bedside Glucose 200 mg/dL (70-110)
--- NOTE | 2018-05-01 12:34 | NURSING ---
pt up to bathroom with RN in room, tolerated well. Pt denies pain or discomfort.
[2018-05-01 16:11] LABS: Bedside Glucose 118 mg/dL (70-110)
[2018-05-01] MEDS: Mupirocin Ointment 22gm Tube 1 APPLIC TOPICAL (19:11)
--- NOTE | 2018-05-01 19:35 | NURSING ---
Pt given tylenol 650mg po for left forearm pain, rates a 5 on pain scale and also right rib pain rates a 3 on pain scale. Pts family at bedside. Call light within reach.
[2018-05-01] MEDS: Glimepiride 4 MG Tablet PO (22:04)
[2018-05-01] MEDS: Atorvastatin Calcium 40 MG Tablet PO (22:04)
[2018-05-01] MEDS: Lisinopril 40 MG Tablet PO (22:04)
[2018-05-01] MEDS: Tamsulosin HCl 0.4 MG Capsule PO (22:04)
[2018-05-01] MEDS: Allopurinol 100 MG Tablet 200 MG PO (22:04)
[2018-05-01 22:13] LABS: Bedside Glucose 131 mg/dL (70-110)
[2018-05-02 02:59] VITALS: PULSE 68
[2018-05-02 03:55] VITALS: BP 147/87; PULSE 80; RESP 18; TEMP 36.6; O2SAT 97
[2018-05-02 06:56] LABS: Bedside Glucose 81 mg/dL (70-110)
[2018-05-02 06:59] VITALS: PULSE 79
[2018-05-02 08:09] VITALS: O2SAT 96
[2018-05-02 09:52] VITALS: BP 137/79; PULSE 79; RESP 16; TEMP 36.4; O2SAT 97
[2018-05-02] MEDS: Fluticasone 0.05% 1 SPRAY NASAL.SRY NASAL (10:00)
--- NOTE | 2018-05-02 10:16 | DCINST_ITS ---
- Discharge Diagnoses Current Active Problems: Current Active and Chronic Problems (Last Updated 04/30/18 @ 07:40 by Mayo Sinclair MD) Septic shock (Acute) Cystitis (Acute) You will use the following diet at home:: Calorie/Carbohydrate Controlled (specify 1200, 1400, etc) - 1800 jose, Cardiac Your food should be the consistency of: Regular Discharge Activity: Return to Normal Activity Weight Bearing Status: Full weight bearing Call your doctor if you observe: Fever of 101 or Higher, Inability to urinate, Shortness of breath, Dizziness, Fainting spells, Chest pain, Increased palpitations (irregular heartbeat), Uncontrolled pain Allergies/Adverse Reactions: Allergies ciprofloxacin Allergy (Verified 04/30/18 02:27) Other Penicillins Allergy (Verified 04/30/18 02:18) Hives Medications to take at Discharge Allopurinol [Zyloprim] 200 mg PO DAILYCM 03/28/15 Atorvastatin Calcium [Lipitor] 40 mg PO QHS 03/28/15 Lisinopril [Zestril] 40 mg PO DAILY 03/28/15 Metformin HCl [Glucophage] 2,000 mg PO DAILY 03/28/15 Glimepiride [Amaryl] 4 mg PO DAILY 10/21/17 Cephalexin [Keflex] 500 mg PO Q12 #14 capsule 05/02/18 Tamsulosin HCl [Flomax] 0.4 mg PO DAILY@2100 #30 capsule 05/02/18 The following prescriptions were given: Cephalexin [Keflex] 500 mg PO Q12 #14 capsule Tamsulosin HCl [Flomax] 0.4 mg PO DAILY@2100 #30 capsule Primary Care Physician: Hamilton Chowdhury MD [Primary Care Provider] - Please follow up with your Primary Care Physician in: 1-2 weeks. Test Results: Test results from this visit will be discussed in further detail at your follow- up appointment, if applicable.
--- NOTE | 2018-05-02 12:30 | PCM.DC.SUM ---
Discharge Date and Diagnosis - Problem List Patient Problems: Active and Suspected Problems (Last Updated 04/30/18 @ 07:40 by Mayo Sinclair MD) Septic shock (Acute) Cystitis (Acute) Date of Admission: 04/30/18 Date of Discharge: 05/02/18 - Primary Discharge Diagnosis Active and Suspected Problems (Last Updated 04/30/18 @ 07:40 by Mayo Sinclair MD) #1 septic shock. #2 E. coli acute cystitis. #3 mild ethmoid and sphenoid sinusitis. #3 vasovagal syncope. #5 mildly acute displaced fracture of the upper nasal septum. Hospital Course and Treatment Imaging Results: Clinical Impression(s) from Imaging Studies Brain CT 04/30/18 02:37 IMPRESSION: 1. No acute intracranial abnormality. 2. Bilateral ethmoid sinusitis and mild sphenoid sinusitis. Individualized dose optimization techniques were used for this CT. at 0402 Reported and signed by: Ben Coelho MD Electronically Signed: Ben Coelho, at 4:00 EST Tel , Service support , Facial/Sinus 04/30/18 02:38 IMPRESSION: 1. Recent, mildly displaced fracture of the upper nasal septum, deviated to the right. 2. The overlying nasal bones appear intact. 3. Paranasal sinus opacification, as above. Individualized dose optimization techniques were used for this CT. at 0438 Reported and signed by: Ben Coelho MD Electronically Signed: Ben Coelho, at 4:37 EST Tel , Service support , Chest X-Ray 04/30/18 03:25 IMPRESSION: Limited inspiration. No acute chest disease. at 0423 Reported and signed by: Ben Coelho MD Electronically Signed: Ben Coelho, at 4:22 EST Tel , Service support , Forearm X-Ray 04/30/18 03:25 Abdomen/Pelvis CT 04/30/18 03:52 IMPRESSION: 1. No acute disease or significant change. 2. Right renal subcentimeter nonobstructing stone. No hydronephrosis. 3. Atherosclerotic calcifications and additional chronic changes, as above Individualized dose optimization techniques were used for this CT. at 0547 Reported and signed by: Ben Coelho MD Electronically Signed: Ben Coelho, at 5:46 EST Tel , Service support , Operations: None Summary of Care Provided: Patient seen and examined on the day of discharge and appeared to be stable to be discharged home. He has no more complaints. He has been ambulating without any difficulties, no dizziness or lightheadedness. He remained afebrile. He denied any more urinary symptoms. Vital signs are stable, afebrile. This is a 52 years old male patient presented to the emergency room because of syncope, found to have septic shock secondary to acute cystitis and also found to have mild ethmoid and sphenoid sinusitis and mildly displaced fracture of the upper nasal septum. #1 septic shock/E. coli acute cystitis: Treated with IV fluids, IV antibiotics with IV Rocephin. Upon admission, his lactic acid was 4.7. With IV fluid and IV antibiotic therapy, lactic acid came down to 1.5. He did have significant leukocytosis upon admission and his white blood cell count returned back to normal with treatment. Blood culture showed no growth in 48 hours. Urine culture revealed presumptive E. coli that was sensitive to cephalosporins ciprofloxacin and Levaquin but resistant to ampicillin. CT scan abdomen and pelvis reviewed, no evidence of obstructive uropathy. Patient was started on Flomax because he reported difficulty initiating urine stream as well as weak urine stream and he reported significant improvement. Patient discharged home in a stable medical condition, discharged on Keflex 500 mg p.o. twice daily for 7 days more, started on Flomax. #2 syncope: Attributed to septic shock, likely vasovagal. Vital signs stabilized and he had no more symptoms after treatment. CT scan brain showed no acute findings. #3 mild ethmoid and sphenoid sinusitis: Incidental finding on CT scan brain, also showing on the x-ray of the facial bones and sinuses. Treated with IV Rocephin and upon discharge, discharged on Keflex 500 mg p.o. twice daily for 7 days more. #4 mildly acute displaced fracture of the upper nasal septum: Secondary to the fall due to syncope. conservative treatment, recommend follow-up with ENT as outpatient. #5 type 2 diabetes mellitus: continued on glimepiride and metformin upon discharge. #6 hypertension: Blood pressure has been stable throughout admission, continued on lisinopril. #7 hyperlipidemia: Continued statins. Patient discharged home in a stable medical condition, discharged on Keflex 500 mg p.o. twice daily for 7 days for both acute cystitis as well as sinusitis, started on Flomax for probable benign prostatic hypertrophy, recommended follow-up with ENT as outpatient for sinusitis as well as mildly displaced fracture of the upper nasal septum, recommended follow-up with PCP in 1-2 week. This note was generated with [employer] dictation software. It may contain incorrect words, spelling, and punctuation that were not noted in checking the note before signing. Patient Problems: Active and Suspected Problems (Last Updated 04/30/18 @ 07:40 by Mayo Sinclair MD) Septic shock (Acute) Cystitis (Acute) - Physical Exam General: Alert, Oriented x3, Cooperative, No apparent distress HEENT: Atraumatic, PERRLA, EOMI, Normocephalic Oral: Moist Mucosa, No Gingival or Mucosal Lesions/ Ulcerations Neck: Supple, No JVD, Negative Carotid Bruits, Trachea Midline, Thyroid Normal Size and Texture Lungs: Clear to auscultation, Normal air movement, No rhonchi, No wheeze, No rales Cardiovascular: Regular rate, Regular Rhythm, Normal S1, Normal S2, No murmurs Abdomen: Bowel Sounds Present, Soft, Non Tender, Non-Distended, No Hepato-splenomegaly Extremities: No clubbing, No cyanosis, No edema Skin: No rashes, No breakdown Lymphatic: No Cervical, Supraclavicular, or Inguinal Adenopathy Neurological: Cranial nerves II-XII grossly intact, Neuro grossly intact Psych/Mental Status: Normal Affect, Appropriate Vital Signs Temp Pulse Resp BP Pulse Ox 97.6 F L 79 16 137/79 H 97 05/02/18 09:52 05/02/18 09:52 05/02/18 09:52 05/02/18 09:52 05/02/18 09:52 Oxygen Delivery Method Room Air Weight: 209 lb 15.986 oz Body Mass Index (BMI) 27.7 Intake and Output for Last 24 Hours 04/30/18 05/01/18 05/02/18 23:59 23:59 23:59 Intake Total 2543 / 2543 800 / 800 200 / 200 Balance 2543 / 2543 800 / 800 200 / 200 Microbiology Past 72 Hours 04/30/18 02:25 Blood Culture - Preliminary Blood Culture (Wb) - Anticubital Left No growth in 48 hours. 04/30/18 04:42 Blood Culture - Preliminary Blood Culture (Wb) - Right Forearm No growth in 48 hours. 04/30/18 04:15 Urine Culture - Final Urine, Clean Catch Presumptive E. coli POC Glucose 05/02/18 05/01/18 05/01/18 06:50 21:59 15:56 POC Glucose 81 131 H 118 H Discharge Activity: Return to Normal Activity Weight Bearing Status: Full weight bearing Call your doctor if you observe: Fever of 101 or Higher, Inability to urinate, Shortness of breath, Dizziness, Fainting spells, Chest pain, Increased palpitations (irregular heartbeat), Uncontrolled pain Home Medications: Medications to take at Discharge Allopurinol [Zyloprim] 200 mg PO DAILYCM 03/28/15 Atorvastatin Calcium [Lipitor] 40 mg PO QHS 03/28/15 Lisinopril [Zestril] 40 mg PO DAILY 03/28/15 Metformin HCl [Glucophage] 2,000 mg PO DAILY 03/28/15 Glimepiride [Amaryl] 4 mg PO DAILY 10/21/17 Cephalexin [Keflex] 500 mg PO Q12 #14 capsule 05/02/18 Tamsulosin HCl [Flomax] 0.4 mg PO DAILY@2100 #30 capsule 05/02/18 Following Prescrptions Were Given to Patient: Cephalexin [Keflex] 500 mg PO Q12 #14 capsule Tamsulosin HCl [Flomax] 0.4 mg PO DAILY@2100 #30 capsule Primary Care Physician: Ashleigh Chowdhury MD [Primary Care Provider] - Please follow up with your Primary Care Physician in: 1-2 weeks. Please Follow Up With: ashleigh chowdhury Disposition: Home Minutes spent on discharge:: 36 Patient Condition:: Stable Medical Necessity - Tobacco Use Smoking Status: Never smoker Meaningful Use Info Meaningful Use Diagnoses (Choose all that apply): None applicable Code Visit Inpatient E&M: 70480 Disch Hosp
--- NOTE | 2018-05-02 12:38 | DS.PCM_ITS ---
Discharge Date and Diagnosis - Problem List Patient Problems: Active and Suspected Problems (Last Updated 04/30/18 @ 07:40 by Mayo Sinclair MD) Septic shock (Acute) Cystitis (Acute) Date of Admission: 04/30/18 Date of Discharge: 05/02/18 - Primary Discharge Diagnosis Active and Suspected Problems (Last Updated 04/30/18 @ 07:40 by Mayo Sinclair MD) #1 septic shock. #2 E. coli acute cystitis. #3 mild ethmoid and sphenoid sinusitis. #3 vasovagal syncope. #5 mildly acute displaced fracture of the upper nasal septum. Hospital Course and Treatment Imaging Results: Clinical Impression(s) from Imaging Studies Brain CT 04/30/18 02:37 IMPRESSION: 1. No acute intracranial abnormality. 2. Bilateral ethmoid sinusitis and mild sphenoid sinusitis. Individualized dose optimization techniques were used for this CT. at 0402 Reported and signed by: Ben Coelho MD Electronically Signed: Ben Coelho, at 4:00 EST Tel , Service support , Facial/Sinus 04/30/18 02:38 IMPRESSION: 1. Recent, mildly displaced fracture of the upper nasal septum, deviated to the right. 2. The overlying nasal bones appear intact. 3. Paranasal sinus opacification, as above. Individualized dose optimization techniques were used for this CT. at 0438 Reported and signed by: Ben Coelho MD Electronically Signed: Ben Coelho, at 4:37 EST Tel , Service support , Chest X-Ray 04/30/18 03:25 IMPRESSION: Limited inspiration. No acute chest disease. at 0423 Reported and signed by: Ben Coelho MD Electronically Signed: Ben Coelho, at 4:22 EST Tel , Service support , Forearm X-Ray 04/30/18 03:25 Abdomen/Pelvis CT 04/30/18 03:52 IMPRESSION: 1. No acute disease or significant change. 2. Right renal subcentimeter nonobstructing stone. No hydronephrosis. 3. Atherosclerotic calcifications and additional chronic changes, as above Individualized dose optimization techniques were used for this CT. at 0547 Reported and signed by: Ben Coelho MD Electronically Signed: Ben Coelho, at 5:46 EST Tel , Service support , Operations: None Summary of Care Provided: Patient seen and examined on the day of discharge and appeared to be stable to be discharged home. He has no more complaints. He has been ambulating without any difficulties, no dizziness or lightheadedness. He remained afebrile. He denied any more urinary symptoms. Vital signs are stable, afebrile. This is a 52 years old male patient presented to the emergency room because of syncope, found to have septic shock secondary to acute cystitis and also found to have mild ethmoid and sphenoid sinusitis and mildly displaced fracture of the upper nasal septum. #1 septic shock/E. coli acute cystitis: Treated with IV fluids, IV antibiotics with IV Rocephin. Upon admission, his lactic acid was 4.7. With IV fluid and IV antibiotic therapy, lactic acid came down to 1.5. He did have significant leukocytosis upon admission and his white blood cell count returned back to normal with treatment. Blood culture showed no growth in 48 hours. Urine culture revealed presumptive E. coli that was sensitive to cephalosporins ciprofloxacin and Levaquin but resistant to ampicillin. CT scan abdomen and pelvis reviewed, no evidence of obstructive uropathy. Patient was started on Flomax because he reported difficulty initiating urine stream as well as weak urine stream and he reported significant improvement. Patient discharged home in a stable medical condition, discharged on Keflex 500 mg p.o. twice daily for 7 days more, started on Flomax. #2 syncope: Attributed to septic shock, likely vasovagal. Vital signs stabilized and he had no more symptoms after treatment. CT scan brain showed no acute findings. #3 mild ethmoid and sphenoid sinusitis: Incidental finding on CT scan brain, also showing on the x-ray of the facial bones and sinuses. Treated with IV Rocephin and upon discharge, discharged on Keflex 500 mg p.o. twice daily for 7 days more. #4 mildly acute displaced fracture of the upper nasal septum: Secondary to the fall due to syncope. conservative treatment, recommend follow-up with ENT as outpatient. #5 type 2 diabetes mellitus: continued on glimepiride and metformin upon discharge. #6 hypertension: Blood pressure has been stable throughout admission, continued on lisinopril. #7 hyperlipidemia: Continued statins. Patient discharged home in a stable medical condition, discharged on Keflex 500 mg p.o. twice daily for 7 days for both acute cystitis as well as sinusitis, started on Flomax for probable benign prostatic hypertrophy, recommended follow- up with ENT as outpatient for sinusitis as well as mildly displaced fracture of the upper nasal septum, recommended follow-up with PCP in 1-2 week. This note was generated with [employer] dictation software. It may contain incorrect words, spelling, and punctuation that were not noted in checking the note before signing. Patient Problems: Active and Suspected Problems (Last Updated 04/30/18 @ 07:40 by Mayo Sinclair MD) Septic shock (Acute) Cystitis (Acute) - Physical Exam General: Alert, Oriented x3, Cooperative, No apparent distress HEENT: Atraumatic, PERRLA, EOMI, Normocephalic Oral: Moist Mucosa, No Gingival or Mucosal Lesions/ Ulcerations Neck: Supple, No JVD, Negative Carotid Bruits, Trachea Midline, Thyroid Normal Size and Texture Lungs: Clear to auscultation, Normal air movement, No rhonchi, No wheeze, No rales Cardiovascular: Regular rate, Regular Rhythm, Normal S1, Normal S2, No murmurs Abdomen: Bowel Sounds Present, Soft, Non Tender, Non-Distended, No Hepato- splenomegaly Extremities: No clubbing, No cyanosis, No edema Skin: No rashes, No breakdown Lymphatic: No Cervical, Supraclavicular, or Inguinal Adenopathy Neurological: Cranial nerves II-XII grossly intact, Neuro grossly intact Psych/Mental Status: Normal Affect, Appropriate Vital Signs Temp Pulse Resp BP Pulse Ox 97.6 F L 79 16 137/79 H 97 05/02/18 09:52 05/02/18 09:52 05/02/18 09:52 05/02/18 09:52 05/02/18 09:52 Oxygen Delivery Method Room Air Weight: 209 lb 15.986 oz Body Mass Index (BMI) 27.7 Intake and Output for Last 24 Hours 04/30/18 05/01/18 05/02/18 23:59 23:59 23:59 Intake Total 2543 / 2543 800 / 800 200 / 200 Balance 2543 / 2543 800 / 800 200 / 200 Microbiology Past 72 Hours 04/30/18 02:25 Blood Culture - Preliminary Blood Culture (Wb) - Anticubital Left No growth in 48 hours. 04/30/18 04:42 Blood Culture - Preliminary Blood Culture (Wb) - Right Forearm No growth in 48 hours. 04/30/18 04:15 Urine Culture - Final Urine, Clean Catch Presumptive E. coli POC Glucose 05/02/18 05/01/18 05/01/18 06:50 21:59 15:56 POC Glucose 81 131 H 118 H Discharge Activity: Return to Normal Activity Weight Bearing Status: Full weight bearing Call your doctor if you observe: Fever of 101 or Higher, Inability to urinate, Shortness of breath, Dizziness, Fainting spells, Chest pain, Increased palpitations (irregular heartbeat), Uncontrolled pain Home Medications: Medications to take at Discharge Allopurinol [Zyloprim] 200 mg PO DAILYCM 03/28/15 Atorvastatin Calcium [Lipitor] 40 mg PO QHS 03/28/15 Lisinopril [Zestril] 40 mg PO DAILY 03/28/15 Metformin HCl [Glucophage] 2,000 mg PO DAILY 03/28/15 Glimepiride [Amaryl] 4 mg PO DAILY 10/21/17 Cephalexin [Keflex] 500 mg PO Q12 #14 capsule 05/02/18 Tamsulosin HCl [Flomax] 0.4 mg PO DAILY@2100 #30 capsule 05/02/18 Following Prescrptions Were Given to Patient: Cephalexin [Keflex] 500 mg PO Q12 #14 capsule Tamsulosin HCl [Flomax] 0.4 mg PO DAILY@2100 #30 capsule Primary Care Physician: Ashleigh Chowdhury MD [Primary Care Provider] - Please follow up with your Primary Care Physician in: 1-2 weeks. Please Follow Up With: ashleigh chowdhury Disposition: Home Minutes spent on discharge:: 36 Patient Condition:: Stable Medical Necessity - Tobacco Use Smoking Status: Never smoker Meaningful Use Info Meaningful Use Diagnoses (Choose all that apply): None applicable Code Visit Inpatient E&M: 29617 Disch Hosp
== END 2018-05-02 12:44 | disposition home or self-care (01) | DRG 463 ==
LOC: ED 02:48 → ICU 06:49 → PCU 07:41 → ICU 05-01 07:17 → PCU 05-01 07:17
PROVIDERS: Family Medicine; Admitting Provider Hospitalist; Emergency Provider Emergency Medicine; Family Provider Family Medicine; PCP Family Medicine; Visit Provider Hospitalist
DX: N30.00 Acute cystitis without hematuria (principal); J32.3 Chronic sphenoidal sinusitis; J32.2 Chronic ethmoidal sinusitis; R55 Syncope and collapse; E11.9 Type 2 diabetes mellitus without complications; M10.9 Gout, unspecified; E78.5 Hyperlipidemia, unspecified; I10 Essential (primary) hypertension; Z79.84 Long term (current) use of oral hypoglycemic drugs; Z79.899 Other long term (current) drug therapy; E87.6 Hypokalemia; Z79.2 Long term (current) use of antibiotics; S02.2XXA Fracture of nasal bones, initial encounter for closed fracture; S50.812A Abrasion of left forearm, initial encounter; W18.30XA Fall on same level, unspecified, initial encounter; Y93.01 Activity, walking, marching and hiking; Y92.002 Bathroom of unspecified non-institutional (private) residence as the place of occurrence of the external cause; Y99.8 Other external cause status; R39.12 Poor urinary stream
CPT/HCPCS: 36415; 70450; 70486; 71045; 73090; 74177; 80048; 80053; 81001; 82962; 83605; 83690; 83735; 84484; 85025; 87040; 87086; 87088; 87186; 93005; 97803; 99285; J7030; Q9967; A4216; J0696; J2405